=== PATIENT | female | born 1955 | race Caucasian/White ===

== ENCOUNTER 2017-01-14 12:20 | Emergency (ER) | payer BC, OTHER ==
[2017-01-14 13:05] LABS: BASOPHILS 0.5 % (0.0-2.0); EOSINOPHILS 1.7 % (0.0-6.0); EOSINOPHILS# 0.1 X 10^3uL (0.0-0.4); HEMATOCRIT 43.4 % (36.0-48.0); HEMOGLOBIN 14.6 g/dL (12.0-16.0); LYMPHOCYTES 30.8 % (20.0-40.0); LYMPHOCYTES# 1.9 X 10^3uL (0.8-3.8); MEAN CELL VOLUME 94.8 fL (84.0-102.0); MEAN CORPUS. HGB CONCENTRATION 33.7 g/dL (32.0-36.0); MEAN CORPUSCULAR HEMOGLOBIN 31.9 pg (29.0-35.0); MEAN PLATELET VOLUME 8.4 fL (7.4-10.4); MONOCYTES 6.9 % (2.0-10.0); MONOCYTES# 0.4 X 10^3uL (0.2-1.0); NEUTROPHILS 60.1 % (54.0-75.0); NEUTROPHILS# 3.7 X 10^3uL (2.6-6.7); PLATELET COUNT 232 X 10^3uL (130-440); RED BLOOD COUNT 4.58 X 10^6uL (4.20-6.10); RED CELL DISTRIBUTION WIDTH 11.8 % (11.5-14.5); WHITE BLOOD COUNT 6.1 X 10^3uL (3.9-10.7)
[2017-01-14 13:18] LABS: A/G RATIO 1.4; ALBUMIN 4.6 g/dL (3.5-5.0); ALKALINE PHOSPHATASE 94 U/L (38-126); ALT 36 U/L (9-52); AST 29 U/L (14-36); BILIRUBIN, TOTAL 0.6 mg/dL (0.2-1.3); BLOOD UREA NITROGEN 14 mg/dL (7-17); CALCIUM 9.6 mg/dL (8.4-10.2); CHLORIDE 105 mmol/L (98-107); CREATININE 0.9 mg/dL (0.5-1.0); EST GLOMERULAR FILTRATION RATE > 60 mL/min; GLUCOSE 95 mg/dL (70-100); POTASSIUM 3.9 mmol/L (3.5-5.1); SODIUM 141 mmol/L (137-145); TOTAL PROTEIN 7.9 g/dL (6.3-8.2); URIC ACID 3.7 mg/dL (2.5-6.2)
[2017-01-14] MEDS ORDERED: KETOROLAC TROMETHAMINE 30 MG/ML VIAL ONE (13:21)
[2017-01-14] MEDS ORDERED: ONDANSETRON HCL 4 MG/2 ML VIAL ONE (13:21)
[2017-01-14] MEDS ORDERED: HYDROmorphone HCL 1 MG/ML SYR ONE (14:07)
--- NOTE | 2017-01-14 14:11 | CT REPORT ---
EXAM:CAT SCAN; [place] [id number] INDICATION: Left mid abdominal pain. COMPARISON:None TECHNIQUE:Axial noncontrast images were obtained through the abdomen and pelvis and reconstructed to 3 mm. Multiplanar reformations were created. Dose reduction technique was utilized. FINDINGS: The lung bases are clear. The liver, spleen, pancreas, and adrenal glands appear normal. Th e gallbladder is unremarkable and there is no biliary ductal dilatation a small cyst involves the sup erior anterior right kidney. The left kidney appears unremarkable. There is no hydronephrosis or uret eral calculus. Duodenal diverticula are present. There is mild diverticulosis of the lower descending and sigmoid co stephen. There is subtle inflammatory fat stranding along the lower descending colon. No abscess or free air is demonstrated. There is no lymphadenopathy. The aorta is normal in caliber. The uterus and adne xal regions appear grossly unremarkable. No suspicious bony lesions are demonstrated. Lower lumbar fu celia hardware and laminectomies are noted. IMPRESSION: 1. No urinary tract calculus or obstruction. 2. Suspicious for mild diverticulitis of the lower descending colon. No perforation or abscess. Results were verbally communicated to Dr. Fischer on 01/14/2017 at 2:10 PM. Final Electronic Signature: This report was electronically signed by Levon Mtz MD on 01/14/2017 2:09 PM. [email or web address] /
[2017-01-14] MEDS ORDERED: metroNIDAZOLE/SOD CL 100 ML IV ONE (14:37)
[2017-01-14] MEDS ORDERED: CIPROFLOXACIN/D5W 400 MG IV ONE (14:37)
--- NOTE | 2017-01-14 18:06 | ER NURSING DOCUMENTATION ---
Nurse's Notes [facility] Name:Janet Gauthier Age:61 yrs Sex:Female :1955 Arrival Date:01/14/2017 Time:12:20 Bed1 Private MD: Diagnosis:Diverticulosis;Diverticulitis w/o Hemorrhage Presentation: 01/14 12:47 Acuity: FITZ 3 cb 12:49 Presenting complaint: Patient states: abdomen pain started @1130. Transition of care: cb Home. 12:49 Method Of Arrival: Private Vehicle cb Triage Assessment: 12:58 General: Appears in no apparent distress, well groomed, Behavior is cooperative. Pain: cb Complains of pain in epigastric area, right upper quadrant and left upper quadrant Pain radiates to back Pain At worst was 10 out of 10 on a pain scale. EENT: Denies nasal congestion. Neuro: Level of Consciousness is awake, alert, Oriented to person, place, time, event. Cardiovascular: Pulses are 2+ in left radial artery. Respiratory: Airway is patent Trachea midline Respiratory effort is even, unlabored, Respiratory pattern is regular, symmetrical. GI: Reports nausea. : Denies burning with urination. Derm: Denies wounds not healing. Musculoskeletal: Reports chronic back pain. 12:58 Respiratory: Breath sounds are clear bilaterally. cb 12:58 GI: Abdomen is non- distended Bowel sounds present X 4 quads. Abd is soft X 4 quads cb Abdomen is tender to palpation in epigastric area, right upper quadrant and left upper quadrant. Historical: - Allergies: PCN; Ibuprofen; horse serum ; back surgery l 4- s1; - Home Meds: 1. Celebrex Oral 2. Cymbalta oral 3. Restoril Oral 4. Topamax Oral 5. perocet 6. bupropion HCl 300 mg oral Tb24 - PMHx: CHRONIC PAIN; DEPRESSION; sepsis ; - PSHx: Appendectomy (October 2014); - Tetanus: allergy. - Ebola Screening: : Patient negative for fever greater than or equal to 101.5 degrees Fahrenheit, and additional compatible Ebola Virus Disease symptoms. Patient denies exposure to infectious person. Patient denies travel to an Ebola-affected area in the 21 days before illness onset. No symptoms or risks identified at this time. . - Immunization history: Flu Vaccine None. - Social history: Smoking status: Patient states was never smoker of tobacco. Patient uses marijuana 2 edibles per year, smoke every three months. Screenin:03 Infectious Disease Risk None. Abuse screen: Denies threats or abuse. Denies injuries cb from another. Nutritional screening: No deficits noted. Vital Signs: 12:34 BP 130 / 78; Pulse 62; Resp 22; Temp 97.8; Pulse Ox 96% on R/A; cb 12:37 BP 150 / 87; Pulse 61; Pulse Ox 96% on R/A; cb 13:01 BP 137 / 93; Pulse 64; Pulse Ox 94% on 2 lpm NC; cb 13:31 BP 119 / 88; Pulse 56; Pulse Ox 95% on 2 lpm NC; cb 14:31 BP 139 / 86; Pulse 59; Pulse Ox 99% on 2 lpm NC; cb ED Course: 12:22 Patient arrived in ED. ds 12:28 Maurilio Fischer MD is Attending Physician. tl1 12:40 Inserted peripheral IV: 20 gauge in left antecubital area and blood collected. cb 12:47 Kamini Novoa, EVE is Primary Nurse. cb 12:47 Triage completed. cb 12:55 Oxygen Oxygen administration via nasal cannula @ 2L/min. cb 13:03 Valuables Remains with patient Patient has correct armband on for positive cb identification. Placed in gown. Bed in low position. Call light in reach. Side rails up X2. Pulse Ox - RN Monitoring Only NIBP On - RN Monitoring Only. Warm blanket given. Diet: Patient is NPO. 13:36 Patient moved to [place]. ms Administered Medications: 12:45 Drug: NS 0.9% 1000 ml; Route: IV; Rate: bolus; Site: left antecubital; cb 13:30 Follow up: IV Status: Infusion continued; IV Intake: 1000ml cb 12:50 Drug: NS 0.9% 1000 ml; Route: IV; Rate: bolus; Site: left antecubital; cb 14:18 Follow up: IV Status: Completed infusion; IV Intake: 1000ml cb 13:00 Drug: Toradol 15 mg; Route: IVP; Site: left antecubital; cb 14:11 Follow up: Response: Pain is unchanged, physician notified cb 13:00 Drug: Zofran 4 mg; Route: IVP; Infused Over: 2 mins; Site: left antecubital; cb 14:11 Follow up: Response: No adverse reaction cb 14:05 Drug: Dilaudid 0.5 mg; Route: IVP; Site: left antecubital; cb 15:10 Follow up: Response: Pain is unchanged, physician notified cb 14:19 Drug: Dilaudid 0.5 mg; Route: IVP; Site: left antecubital; cb 15:10 Follow up: Response: Pain is decreased cb 14:45 Drug: NS 0.9% 1000 ml; Route: IV; Rate: 125 ml/hr; Site: left antecubital; cb 17:45 Follow up: IV Status: Completed infusion; IV Intake: 200ml cb 14:50 Drug: metroNIDAZOLE 500 mg; Route: IVPB; Site: left antecubital; cb 16:38 Follow up: IV Status: Completed infusion; IV Intake: 100ml cb 16:00 Drug: Ciprofloxacin 400 mg; Route: IVPB; Site: left antecubital; cb 17:45 Follow up: IV Status: Completed infusion; IV Intake: 250ml cb Point of Care Testing: Urine Dip: 15:07 pH: 7.0; ; Specific [place]: 1.015; Ketones: Negative; Glucose: Negative; Protein: cb Negative; Leukocytes: Negative; Nitrite: Negative ; Blood: Negative; Bilirubin: Negative ; Urobilinogen: Normal Intake: 13:30 IV: 1000ml; Total: 1000ml. cb 14:18 IV: 1000ml; Total: 2000ml. cb 16:38 IV: 100ml; Total: 2100ml. cb 17:45 IV: 250ml; Total: 2350ml. cb 17:45 IV: 200ml; Total: 2550ml. cb Outcome: 13:51 Discharge ordered by . tl1 18:04 Discharged to home ambulatory, with friend. cb 18:04 Condition: stable 18:04 Discharge instructions given to patient, Instructed on discharge instructions, follow up and referral plans. Demonstrated understanding of instructions, medications, Prescriptions given X 4. 18:04 IV D/Augusto 18:05 Patient left the ED. cb 01/15 11:28 Discharge F/U Call: Unable to reach: no answer st 01/16 10:27 Discharge F/U Call: Spoke with: patient. Overall Care on a scale of 1-[address] being the best care, you rate our care as: Other comments: pt had a delay in get the RX filled do to timing the pharmacy closer wrong but pt picked up meds today. pt is feeling sick but she took her first dose of abx today and is staying in bed. What is the one thing you feel we could do to improve? Signatures: Kamini Novoa, Shreya Crocker RN, cb, RN RN st Srot, [place], Reg Reg Hernandez [facility] Aaliyah, MD JUMANA Thorpe tl1
--- NOTE | 2017-01-14 18:06 | ER PHYSICIAN DOCUMENTATION ---
Physician Documentation [facility] Name:Janet Gauthier Age:61 yrs Sex:Female :1955 Arrival Date:01/14/2017 Time:12:20 Bed1 Private MD: Maurilio Turner Disposition: 01/14 14:59 Chart complete. tl1 Disposition: 01/14/17 13:51 Discharged to Home/Self Care. Impression: Diverticulosis, Diverticulitis w/o Hemorrhage. - Condition is Good. - Prescriptions for Flagyl 500 mg Oral Tablet - take 1 tablet by ORAL route every 6 hours for 10 days; 40 tablet. [place] 7.5- 325 mg Oral Tablet - take 1 tablet by ORAL route every 6 hours As needed; 20 tablet. Cipro 500 mg Oral Tablet - take 1 tablet by ORAL route every 12 hours for 7 days; 14 tablet. Zofran 4 mg Oral Tablet - take 1-2 tablet by ORAL route every 4-6 hours As needed; 10 tablet. - Medical Reconciliation form form. - Follow up: Private Physician; When: 2 - 3 days; Reason: Recheck today's complaints, Continuance of care. - Problem is new. - Symptoms have improved. - Notes: Follow up with your PCP, Dr Levine or if you'd like, one of the local family doctors within a week. Return here sooner for any new or worrisome problems. Eat a high fiber diet. HPI: 12:25 This 61 yrs old Female presents to ER via Private Vehicle with complaints of tl1 Possible Kidney Stone. 12:25 The patient complains of pain in the left mid back. The pain radiates left lower tl1 quadrant. Onset: The symptom(s)/episode began/occurred suddenly, 3 hour(s) ago. Modifying factors: The symptoms are alleviated by nothing. the symptoms are aggravated by nothing. Associated signs and symptoms: Pertinent positives: nausea, vomiting, Pertinent negatives: dysuria, fever, urinary frequency, headache, hematuria. Severity of pain: At its worst the pain was severe in the emergency department the pain is unchanged. The patient has not experienced similar symptoms in the past. . Historical: - Allergies: PCN; Ibuprofen; horse serum ; back surgery l 4- s1; - Home Meds: 1. Celebrex Oral 2. Cymbalta oral 3. Restoril Oral 4. Topamax Oral 5. perocet 6. bupropion HCl 300 mg oral Tb24 - PMHx: CHRONIC PAIN; DEPRESSION; sepsis ; - PSHx: Appendectomy (October 2014); - Tetanus: allergy. - Ebola Screening: : Patient negative for fever greater than or equal to 101.5 degrees Fahrenheit, and additional compatible Ebola Virus Disease symptoms. Patient denies exposure to infectious person. Patient denies travel to an Ebola-affected area in the 21 days before illness onset. No symptoms or risks identified at this time. . - Immunization history: Flu Vaccine None. - Social history: Smoking status: Patient states was never smoker of tobacco. Patient uses marijuana 2 edibles per year, smoke every three months. ROS: 13:57 Abdomen/GI: Positive for abdominal pain, nausea, vomiting, Negative for diarrhea, tl1 constipation, abdominal cramps, abdominal distension, hematemesis, black/tarry stool, rectal bleeding. 13:57 Back: Positive for pain at rest, radiated pain, Negative for decreased range of motion, pain with movement. 13:57 : Positive for flank pain, Negative for urinary symptoms, urinary frequency, hematuria, burning with urination, difficulty urinating, foul smelling urine, vaginal bleeding, vaginal discharge. 13:57 All other systems are negative. Exam: 14:10 Head/Face: Normocephalic, atraumatic. tl1 Eyes: Pupils equal round and reactive to light, extra-ocular motions intact. Lids and lashes normal. Conjunctiva and sclera are non-icteric and not injected. Cornea within normal limits. Periorbital areas with no swelling, redness, or edema. ENT: Nares patent. No nasal discharge, no septal abnormalities noted. Tympanic membranes are normal and external auditory canals are clear. Oropharynx with no redness, swelling, or masses, exudates, or evidence of obstruction, uvula midline. Mucous membranes moist. Neck: Trachea midline, no thyromegaly or masses palpated, and no cervical lymphadenopathy. Supple, full range of motion without nuchal rigidity, or vertebral point tenderness. No Meningismus. Chest/axilla: Normal chest wall appearance and motion. Nontender with no deformity. No lesions are appreciated. Cardiovascular: Regular rate and rhythm with a normal S1 and S2. No gallops, murmurs, or rubs. Normal PMI, no JVD. No pulse deficits. 14:10 Respiratory: Lungs have equal breath sounds bilaterally, clear to auscultation and tl1 percussion. No rales, rhonchi or wheezes noted. No increased work of breathing, no retractions or nasal flaring. 14:10 Constitutional: The patient appears alert, awake, well developed, well hydrated, well groomed, well nourished, anxious, in obvious distress, moderately distressed, in obvious pain, restless, uncomfortable. 14:10 Abdomen/GI: Inspection: abdomen appears normal, Bowel sounds: diminished, Palpation: soft, moderate abdominal tenderness, in the left lower quadrant, voluntary guarding, is not appreciated, involuntary guarding, is not appreciated, no appreciated organomegaly. 14:10 : CVA tenderness, on the left, Bladder: is normal, tenderness, is not appreciated. 14:10 Musculoskeletal/extremity: Exam is negative for acute changes. 14:10 Skin: Exam negative for acute changes. 14:10 Neuro: Orientation: is normal, Mentation: is normal, Memory: is normal, Cranial nerves: grossly normal, Cerebellar function: Motor: moves all fours, Gait: is steady, at a normal pace, without difficulty, appropriate for age. Vital Signs: 12:34 BP 130 / 78; Pulse 62; Resp 22; Temp 97.8; Pulse Ox 96% on R/A; cb 12:37 BP 150 / 87; Pulse 61; Pulse Ox 96% on R/A; cb 13:01 BP 137 / 93; Pulse 64; Pulse Ox 94% on 2 lpm NC; cb 13:31 BP 119 / 88; Pulse 56; Pulse Ox 95% on 2 lpm NC; cb 14:31 BP 139 / 86; Pulse 59; Pulse Ox 99% on 2 lpm NC; cb MDM: 12:29 Patient medically screened. tl1 14:12 Differential diagnosis: nephrolithiasis, pyelonephritis, diverticulitis, ruptured AAA, tl1 dissecting AAA. Data reviewed: vital signs, nurses notes, lab test result(s), CBC, electrolytes, hepatic panel, urinalysis, and as a result, I will discharge patient. Test interpretation: by ED physician or midlevel provider: none. Counseling: I had a detailed discussion with the patient and/or guardian regarding: the historical points, exam findings, and any diagnostic results supporting the discharge/admit diagnosis, lab results, radiology results, the need for outpatient follow up, to return to the emergency department if symptoms worsen or persist or if there are any questions or concerns that arise at home. Medication response: The patient's symptoms have improved. Response to treatment: the patient's symptoms have markedly improved after treatment, and as a result, I will administer antibiotics. Special discussion: Based on the patient's Hx, exam, and Dx evaluation, there is no indication for emergent surgery or inpatient Tx. It is understood by the patient/guardian that if the Sx's persist or worsen they need to return immediately for re-evaluation. I discussed with the patient/guardian in detail that at this point there is no indication for admission to the hospital. It is understood, however, that if the symptoms persist or worsen the patient needs to return immediately for re-evaluation. 01/15 10:36 ED course: Pain significantly improved. Serial exams demonstrated only mild LLQ TTP. tl1 She was hemodynamically stable and tolerated the antibiotics well.. 01/14 13:06 Order name: CBC AUTO DIF, MDIF/RMOR IF IND; Complete Time: 13:52 EDMS 01/14 13:51 Interpretation: Normal: WHITE BLOOD COUNT 6.1; HEMOGLOBIN 14.6; HEMATOCRIT 43.4; tl1 PLATELET COUNT 232. 01/14 13:20 Order name: COMPREHENSIVE METABOLIC PANEL; Complete Time: 13:52 EDMS 01/14 13:52 Interpretation: Normal: SODIUM 141; POTASSIUM 3.9; CHLORIDE 105; CARBON DIOXIDE 22; tl1 GLUCOSE 95; BLOOD UREA NITROGEN 14; CREATININE 0.9. 01/14 13:20 Order name: URIC ACID; Complete Time: 13:52 EDMS 01/14 13:52 Interpretation: Normal: URIC ACID 3.7. tl1 01/14 14:12 Order name: CAT SCAN; [place] [id number]; Complete Time: 14:17 EDMS 01/14 15:09 Order name: Oxygen; Complete Time: 15:21 cb Dispensed Medications: 01/14 12:45 Drug: NS 0.9% 1000 ml; Route: IV; Rate: bolus; Site: left antecubital; cb 13:30 Follow up: IV Status: Infusion continued; IV Intake: 1000ml cb 12:50 Drug: NS 0.9% 1000 ml; Route: IV; Rate: bolus; Site: left antecubital; cb 14:18 Follow up: IV Status: Completed infusion; IV Intake: 1000ml cb 13:00 Drug: Toradol 15 mg; Route: IVP; Site: left antecubital; cb 14:11 Follow up: Response: Pain is unchanged, physician notified cb 13:00 Drug: Zofran 4 mg; Route: IVP; Infused Over: 2 mins; Site: left antecubital; cb 14:11 Follow up: Response: No adverse reaction cb 14:05 Drug: Dilaudid 0.5 mg; Route: IVP; Site: left antecubital; cb 15:10 Follow up: Response: Pain is unchanged, physician notified cb 14:19 Drug: Dilaudid 0.5 mg; Route: IVP; Site: left antecubital; cb 15:10 Follow up: Response: Pain is decreased cb 14:45 Drug: NS 0.9% 1000 ml; Route: IV; Rate: 125 ml/hr; Site: left antecubital; cb 17:45 Follow up: IV Status: Completed infusion; IV Intake: 200ml cb 14:50 Drug: metroNIDAZOLE 500 mg; Route: IVPB; Site: left antecubital; cb 16:38 Follow up: IV Status: Completed infusion; IV Intake: 100ml cb 16:00 Drug: Ciprofloxacin 400 mg; Route: IVPB; Site: left antecubital; cb 17:45 Follow up: IV Status: Completed infusion; IV Intake: 250ml cb Point of Care Testing: Urine Dip: 15:07 pH: 7.0; ; Specific [place]: 1.015; Ketones: Negative; Glucose: Negative; Protein: cb Negative; Leukocytes: Negative; Nitrite: Negative ; Blood: Negative; Bilirubin: Negative ; Urobilinogen: Normal Signatures: Kamini Novoa, RN Maurilio Silva cb, MD MD tl1
== END 2017-01-14 18:05 | disposition home or self-care (01) ==
LOC: ER 12:20
DX: K57.32 Diverticulitis of large intestine without perforation or abscess without bleeding (principal); K57.30 Diverticulosis of large intestine without perforation or abscess without bleeding; R11.2 Nausea with vomiting, unspecified; Z79.899 Other long term (current) drug therapy
CPT/HCPCS: 74176; 80053; 84550; 85025; 96361; 96365; 96366; 96367; 96368; 96375; 99285; J0744; J1170; J1885; J2405